=== PATIENT | female | born 1980 ===

== ENCOUNTER 2022-08-27 05:08 | Day surgery (SDC) | payer OTHER ==
[~2022-08-27] VITALS: Ht 167.6 cm; Wt 77.1 kg
[2022-08-27] MEDS ORDERED: ULTRACET PO (08:34)
[2022-08-27] MEDS ORDERED: COLACE100 MG PO (09:14)
== END 2022-08-27 14:30 | disposition home or self-care (01) ==
LOC: CIR.AMB 05:08
PROVIDERS: ATTEND Surgery
DX: D12.8 Benign neoplasm of rectum (principal); K62.89 Other specified diseases of anus and rectum; K62.5 Hemorrhage of anus and rectum; Z91.013 Allergy to seafood; Z20.822 Contact with and (suspected) exposure to COVID-19